=== PATIENT | male | born 1935 | race Caucasian/White ===

== ENCOUNTER 2019-02-23 07:40 | Inpatient (IN) ==
[2019-02-23 08:23] LABS: Basophils # 0.1 10*3/uL (0.0-0.2); Basophils % 0.6 % (0.0-0.8); Eosinophils # 0.1 10*3/uL (0.0-0.87); Eosinophils % 0.8 % (0.00-10.9); Hematocrit 42.9 VOL% (42.0-52.0); Hemoglobin 14.1 GM/DL (14.0-18.0); Immature Granulocytes % 0.5 %; Immature Granulocytes Absolute 0.04 #; Lymphocytes % 12.9 % (21.2-54.2); Mean Corpuscular HGB Conc 32.9 GM/DL (32-36); Mean Corpuscular Volume 91.5 FL (87-102); Mean Platelet Volume 9.6 FL (9.6-12.0); Monocytes % 11.7 % (1.7-12.7); Neutrophils % 73.5 % (38.7-73.9); Platelet Count 215 T/CUMM (130-400); Red Blood Count 4.69 MC/CUMM (3.8-5.5); Red Cell Distribution Width 13.2 % (9.3-17.3); White Blood Count 7.8 T/CUMM (4-12)
[2019-02-23 08:37] LABS: Calcium 8.7 MG/DL (8.5-10.1); Osmolality,Calculated 280.8 MOS/KG (273-304)
[2019-02-23 08:54] LABS: Apearance,Urine CLEAR (Clear); Bilirubin,Urine Negative (Negative); Blood, Urine Small mg/dL (Negative); Glucose,Urine (UA) 50 mg/dL (Negative); Hyaline Casts,Urine 4 /LPF (0-3); Ketones,Urine 5 mg/dL (Negative); Mucus,Urine Occasional /LPF (Occasional); Nitrite,Urine Negative (Negative); Protein,Urine Negative; RBC,Urine 3 /HPF (0-4); Squamous Epithelial Cell,Urine Occasional /HPF (0-10); Urine Color Yellow (Yellow); Urine Specific Gravity 1.019 (1.001-1.035); Urine Urobilinogen < 2.0 EU/DL (0.2-1.0); WBC,Urine <1 /HPF (0-6)
[2019-02-23] MEDS ORDERED: DEXTROSE 10% 25 GM/250 ML BAG IV PRN (10:57)
[2019-02-23] MEDS ORDERED: ONDANSETRON 4 MG/2 ML VIAL IV PRN (10:57)
[2019-02-23] MEDS ORDERED: LACTULOSE 20 GM/30 ML UDCUP PO PRN (10:57)
[2019-02-23] MEDS ORDERED: GLUCAGON 1 MG VIAL IM PRN (10:57)
[2019-02-23] MEDS ORDERED: ACETAMINOPHEN 325 MG TABLET PO PRN (10:57)
[2019-02-23] MEDS ORDERED: DEXTROSE 10% 250 ML BAG IV PRN (11:02)
[2019-02-23 11:34] LABS: Risk Ratio 2.45; Thyroid Stimulating Hormone 0.972 uIU/ml (0.358-3.74); VLDL CHOLESTEROL 18.4 MG/DL
[2019-02-23] MEDS: INSULIN LISPRO 100 UNIT/ML SUBCUT SCH ×3 (15:45→21:57)
[2019-02-23] MEDS: LISINOPRIL 5 MG TABLET PO SCH (19:35)
[2019-02-23] MEDS: INSULIN NPH/REGULAR 70/30 100 UNIT/ML SUBCUT SCH (19:35)
[2019-02-23] MEDS: FINASTERIDE 5 MG TABLET PO SCH (20:33)
[2019-02-23] MEDS: guaiFENesin/DM ER 600-30 MG TABLET PO SCH (20:33)
[2019-02-23] MEDS: rOPINIRole 1 MG TABLET PO SCH (20:33)
[2019-02-24 06:24] LABS: Basophils # 0.1 10*3/uL (0.0-0.2); Basophils % 0.7 % (0.0-0.8); Eosinophils # 0.1 10*3/uL (0.0-0.87); Eosinophils % 1.7 % (0.00-10.9); Hematocrit 43.1 VOL% (42.0-52.0); Hemoglobin 14.3 GM/DL (14.0-18.0); Immature Granulocytes % 0.6 %; Immature Granulocytes Absolute 0.04 #; Lymphocytes # 1.9 10*3/uL (1.4-4.0); Lymphocytes % 26.9 % (21.2-54.2); Mean Corpuscular HGB Conc 33.2 GM/DL (32-36); Mean Corpuscular Volume 91.9 FL (87-102); Monocytes % 13.8 % (1.7-12.7); Neutrophils % 56.3 % (38.7-73.9); Platelet Count 214 T/CUMM (130-400); Red Blood Count 4.69 MC/CUMM (3.8-5.5); Red Cell Distribution Width 13.1 % (9.3-17.3)
[2019-02-24 06:34] LABS: Calcium 8.5 MG/DL (8.5-10.1); Osmolality,Calculated 280.5 MOS/KG (273-304)
[2019-02-24] MEDS: guaiFENesin/DM ER 600-30 MG TABLET PO SCH ×2 (08:57→20:39)
[2019-02-24] MEDS: TAMSULOSIN 0.4 MG CAPSULE PO SCH (08:57)
[2019-02-24] MEDS: INSULIN LISPRO 100 UNIT/ML SUBCUT SCH ×4 (08:58→21:37)
[2019-02-24] MEDS: INSULIN NPH/REGULAR 70/30 100 UNIT/ML SUBCUT SCH ×2 (08:58→18:14)
[2019-02-24] MEDS: PANTOPRAZOLE 40 MG TABLET PO SCH (08:58)
[2019-02-24] MEDS: CLOPIDOGREL 75 MG TABLET PO SCH (08:59)
[2019-02-24] MEDS: rOPINIRole 1 MG TABLET PO SCH ×2 (08:59→20:39)
[2019-02-24] MEDS: CYANOCOBALAMIN 500 MCG TABLET PO SCH (08:59)
[2019-02-24] MEDS: LISINOPRIL 5 MG TABLET PO SCH (18:15)
[2019-02-24] MEDS: SODIUM CHLORIDE 0.9% 1,000 ML IV SCH (20:39)
[2019-02-24] MEDS: FINASTERIDE 5 MG TABLET PO SCH (20:40)
[2019-02-25 04:34] LABS: Basophils # 0.1 10*3/uL (0.0-0.2); Basophils % 0.5 % (0.0-0.8); Eosinophils # 0.1 10*3/uL (0.0-0.87); Eosinophils % 0.8 % (0.00-10.9); Hematocrit 41.1 VOL% (42.0-52.0); Hemoglobin 13.4 GM/DL (14.0-18.0); Immature Granulocytes % 0.5 %; Immature Granulocytes Absolute 0.06 #; Lymphocytes # 2.5 10*3/uL (1.4-4.0); Lymphocytes % 22.6 % (21.2-54.2); Mean Corpuscular HGB Conc 32.6 GM/DL (32-36); Mean Corpuscular Volume 91.7 FL (87-102); Mean Platelet Volume 9.6 FL (9.6-12.0); Monocytes % 11.5 % (1.7-12.7); Neutrophils % 64.1 % (38.7-73.9); Platelet Count 197 T/CUMM (130-400); Red Blood Count 4.48 MC/CUMM (3.8-5.5); White Blood Count 11.2 T/CUMM (4-12)
[2019-02-25 05:02] LABS: Calcium 8.3 MG/DL (8.5-10.1); Osmolality,Calculated 272.8 MOS/KG (273-304)
[2019-02-25] MEDS: rOPINIRole 1 MG TABLET PO SCH ×2 (09:24→20:27)
[2019-02-25] MEDS: TAMSULOSIN 0.4 MG CAPSULE PO SCH (09:24)
[2019-02-25] MEDS: PANTOPRAZOLE 40 MG TABLET PO SCH (09:24)
[2019-02-25] MEDS: CLOPIDOGREL 75 MG TABLET PO SCH (09:24)
[2019-02-25] MEDS: CYANOCOBALAMIN 500 MCG TABLET PO SCH (09:24)
[2019-02-25] MEDS: guaiFENesin/DM ER 600-30 MG TABLET PO SCH ×2 (09:24→20:27)
[2019-02-25] MEDS: INSULIN NPH/REGULAR 70/30 100 UNIT/ML SUBCUT SCH ×2 (09:25→18:12)
[2019-02-25] MEDS: INSULIN LISPRO 100 UNIT/ML SUBCUT SCH ×4 (09:26→20:58)
[2019-02-25] MEDS: SODIUM CHLORIDE 0.9% 1,000 ML IV SCH ×2 (09:29→23:46)
[2019-02-25] MEDS: ALBUTEROL/IPRATROPIUM 3 ML NEB RESP TX SCH ×2 (14:12→19:30)
[2019-02-25] MEDS: CARBIDOPA/LEVODOPA 25-100 MG TABLET PO SCH ×3 (15:02→20:28)
[2019-02-25] MEDS: ERGOCALCIFEROL 50,000 UNIT CAPSULE PO SCH ×2 (15:02→15:49)
[2019-02-25] MEDS: LISINOPRIL 5 MG TABLET PO SCH (18:12)
[2019-02-25] MEDS: FINASTERIDE 5 MG TABLET PO SCH (20:27)
[2019-02-26] MEDS: ALBUTEROL/IPRATROPIUM 3 ML NEB RESP TX SCH ×4 (00:14→20:37)
[2019-02-26] MEDS: INSULIN LISPRO 100 UNIT/ML SUBCUT SCH ×4 (07:56→21:19)
[2019-02-26 08:12] LABS: Osmolality,Calculated 282.1 MOS/KG (273-304)
[2019-02-26] MEDS ORDERED: TUBERCULIN SKIN TEST 0.1 ML SYRINGE INTRADERM ONE (08:29)
[2019-02-26] MEDS: PANTOPRAZOLE 40 MG TABLET PO SCH (08:37)
[2019-02-26] MEDS: CARBIDOPA/LEVODOPA 25-100 MG TABLET PO SCH ×3 (08:37→21:48)
[2019-02-26] MEDS: CLOPIDOGREL 75 MG TABLET PO SCH (08:37)
[2019-02-26] MEDS: INSULIN NPH/REGULAR 70/30 100 UNIT/ML SUBCUT SCH ×2 (08:38→18:06)
[2019-02-26] MEDS: guaiFENesin/DM ER 600-30 MG TABLET PO SCH ×2 (08:38→21:19)
[2019-02-26] MEDS: TAMSULOSIN 0.4 MG CAPSULE PO SCH (08:38)
[2019-02-26] MEDS: rOPINIRole 1 MG TABLET PO SCH ×2 (08:42→21:19)
[2019-02-26] MEDS: SODIUM CHLORIDE 0.9% 1,000 ML IV SCH (12:15)
[2019-02-26] MEDS: LISINOPRIL 5 MG TABLET PO SCH (18:06)
[2019-02-26] MEDS: FINASTERIDE 5 MG TABLET PO SCH (21:26)
[2019-02-27] MEDS: ALBUTEROL/IPRATROPIUM 3 ML NEB RESP TX SCH ×2 (01:04→08:10)
[2019-02-27] MEDS: SODIUM CHLORIDE 0.9% 1,000 ML IV SCH (02:14)
[2019-02-27 05:14] LABS: Basophils # 0.1 10*3/uL (0.0-0.2); Basophils % 0.7 % (0.0-0.8); Eosinophils # 0.1 10*3/uL (0.0-0.87); Eosinophils % 1.6 % (0.00-10.9); Hematocrit 34.8 VOL% (42.0-52.0); Hemoglobin 11.4 GM/DL (14.0-18.0); Immature Granulocytes % 0.5 %; Immature Granulocytes Absolute 0.04 #; Lymphocytes # 1.9 10*3/uL (1.4-4.0); Lymphocytes % 25.4 % (21.2-54.2); Mean Corpuscular HGB Conc 32.8 GM/DL (32-36); Mean Platelet Volume 9.9 FL (9.6-12.0); Monocytes % 8.7 % (1.7-12.7); Neutrophils % 63.1 % (38.7-73.9); Platelet Count 201 T/CUMM (130-400); Red Blood Count 3.74 MC/CUMM (3.8-5.5); Red Cell Distribution Width 12.9 % (9.3-17.3); White Blood Count 7.5 T/CUMM (4-12)
[2019-02-27 05:40] LABS: Calcium 8.1 MG/DL (8.5-10.1); Osmolality,Calculated 282.5 MOS/KG (273-304)
[2019-02-27] MEDS: guaiFENesin/DM ER 600-30 MG TABLET PO SCH (08:56)
[2019-02-27] MEDS: PANTOPRAZOLE 40 MG TABLET PO SCH (08:56)
[2019-02-27] MEDS: TAMSULOSIN 0.4 MG CAPSULE PO SCH (08:56)
[2019-02-27] MEDS: rOPINIRole 1 MG TABLET PO SCH (08:56)
[2019-02-27] MEDS: CLOPIDOGREL 75 MG TABLET PO SCH (08:56)
[2019-02-27] MEDS: INSULIN NPH/REGULAR 70/30 100 UNIT/ML SUBCUT SCH (08:56)
[2019-02-27] MEDS: INSULIN LISPRO 100 UNIT/ML SUBCUT SCH ×2 (08:57→12:47)
[2019-02-27] MEDS: CARBIDOPA/LEVODOPA 25-100 MG TABLET PO SCH (09:02)
[2019-02-27 11:55] VITALS: BP 128/49
== END 2019-02-27 14:44 | DRG 57 ==
LOC: N.ED 07:40 → N.EDINP 07:40 → N.2E 13:35 → SUATTDRO 02-24 11:34
PROVIDERS: ADMIT Internal Medicine; ATTEND Internal Medicine

== ENCOUNTER 2021-05-11 19:39 | Inpatient (IN) ==
[2021-05-11] MEDS ORDERED: ONDANSETRON 4 MG/2 ML VIAL IV STA (19:59)
[2021-05-11] MEDS ORDERED: SODIUM CHLORIDE 0.9% 500 ML IV STA ×2 (19:59→21:47)
[2021-05-11 20:43] LABS: Basophils % 0.3 % (0.0-0.8); Hematocrit 42.9 VOL% (42.0-52.0); Hemoglobin 13.5 GM/DL (14.0-18.0); Immature Granulocytes % 0.5 %; Immature Granulocytes Absolute 0.06 #; Lymphocytes # 0.5 10*3/uL (1.4-4.0); Lymphocytes % 3.8 % (21.2-54.2); Mean Corpuscular HGB Conc 31.5 GM/DL (32-36); Mean Corpuscular Volume 94.7 FL (87-102); Monocytes % 3.6 % (1.7-12.7); Neutrophils % 91.8 % (38.7-73.9); Platelet Count 297 T/CUMM (130-400); Red Blood Count 4.53 MC/CUMM (3.8-5.5); Red Cell Distribution Width 13.8 % (9.3-17.3)
[2021-05-11 21:01] LABS: Albumin 3.5 G/DL (3.4-5.0); Bilirubin,Total 0.5 MG/DL (0.20-1.00); Calcium 8.9 MG/DL (8.5-10.1); Osmolality,Calculated 279.1 MOS/KG (273-304); Potassium 4.3 MMOL/L (3.5-5.1); Total Protein 6.8 G/DL (6.4-8.2)
[2021-05-11 21:03] LABS: Band Neutrophils 1 % (0-10); Elliptocytes Few; Lymphocytes 5 % (20-55); Reactive Lymphocytes Few; Segmented Neutrophils 91 % (50-85); Total Cells Counted 100
[2021-05-11 21:04] LABS: Hypochromia Slight; Platelet Estimate Adequate; Target Cells Few
[2021-05-11 22:07] LABS: Bacteria,Urine Many /HPF (Few); Bilirubin,Urine Negative (Negative); Blood, Urine Small mg/dL (Negative); Glucose,Urine (UA) Negative (Negative); Ketones,Urine 5 mg/dL (Negative); Nitrite,Urine Negative (Negative); Protein,Urine 30 MG/DL; Squamous Epithelial Cell,Urine Occasional /HPF (0-10); Urine Appearance CLOUDY (Clear); Urine Color Amber (Yellow); Urine Specific Gravity 1.023 (1.001-1.035); Urine Urobilinogen < 2.0 EU/DL (<2.0)
[2021-05-11] MEDS ORDERED: MEROPENEM 1,000 MG in SODIUM CHLORIDE 0.9% 100 ML IV ONE (22:28)
[2021-05-11] MEDS ORDERED: DEXTROSE 50% 25 GM/50 ML VIAL IV PRN (22:43)
[2021-05-11] MEDS ORDERED: GLUCAGON 1 MG VIAL IM PRN ×2 (22:43→22:49)
[2021-05-11] MEDS ORDERED: guaiFENesin/DM ER 600-30 MG TABLET PO PRN (22:49)
[2021-05-11] MEDS ORDERED: DOCUSATE SODIUM 100 MG CAPSULE PO PRN (22:49)
[2021-05-11] MEDS ORDERED: MORPHINE 2 MG/1 ML SYRINGE IV PRN (22:49)
[2021-05-11] MEDS ORDERED: DEXTROSE 10% 250 ML BAG IV PRN (22:49)
[2021-05-11] MEDS ORDERED: hydrALAZINE 20 MG/1 ML VIAL IV PRN (22:49)
[2021-05-11] MEDS ORDERED: ONDANSETRON 4 MG/2 ML VIAL IV PRN (22:49)
[2021-05-11] MEDS ORDERED: NICOTINE 21 MG/24 HR PATCH TRANSDERM PRN (22:49)
[2021-05-11] MEDS ORDERED: PROMETHAZINE 25 MG/1 ML VIAL IM PRN (22:49)
[2021-05-11] MEDS ORDERED: diphenhydrAMINE CAP 25 MG CAPSULE PO PRN (22:49)
[2021-05-12] MEDS: ALBUTEROL/IPRATROPIUM 3 ML NEB RESP TX SCH ×4 (00:10→20:33)
[2021-05-12 04:28] LABS: Basophils % 0.3 % (0.0-0.8); Eosinophils % 0.1 % (0.00-10.9); Hematocrit 37.1 VOL% (42.0-52.0); Hemoglobin 11.8 GM/DL (14.0-18.0); Immature Granulocytes % 0.6 %; Immature Granulocytes Absolute 0.05 #; Lymphocytes # 0.9 10*3/uL (1.4-4.0); Lymphocytes % 10.1 % (21.2-54.2); Mean Corpuscular HGB Conc 31.8 GM/DL (32-36); Mean Corpuscular Volume 94.9 FL (87-102); Mean Platelet Volume 9.4 FL (9.6-12.0); Monocytes % 5.5 % (1.7-12.7); Neutrophils % 83.4 % (38.7-73.9); Platelet Count 263 T/CUMM (130-400); Red Blood Count 3.91 MC/CUMM (3.8-5.5); White Blood Count 9.1 T/CUMM (4-12)
[2021-05-12 04:56] LABS: Calcium 8.4 MG/DL (8.5-10.1); Osmolality,Calculated 284.7 MOS/KG (273-304); Potassium 4.2 MMOL/L (3.5-5.1); Risk Ratio 2.29
[2021-05-12] MEDS ORDERED: MEROPENEM 500 MG in SODIUM CHLORIDE 0.9% 100 ML IV SCH (06:00)
[2021-05-12] MEDS: PANTOPRAZOLE 40 MG TABLET PO SCH (09:17)
[2021-05-12] MEDS: TAMSULOSIN 0.4 MG CAPSULE PO SCH (09:17)
[2021-05-12] MEDS: INSULIN LISPRO 100 UNIT/ML SUBCUT SCH ×4 (09:18→21:16)
[2021-05-12] MEDS: HEPARIN 5,000 UNIT/1 ML VIAL SUBCUT SCH ×2 (09:19→20:50)
[2021-05-12] MEDS: ACETAMINOPHEN 325 MG TABLET PO PRN (13:00)
[2021-05-12] MEDS ORDERED: VANCOMYCIN INJ 1,250 MG in SODIUM CHLORIDE 0.9% 250 ML IV SCH (13:30)
[2021-05-12] MEDS: rOPINIRole 1 MG TABLET PO SCH (20:49)
[2021-05-12] MEDS: FINASTERIDE 5 MG TABLET PO SCH (20:50)
[2021-05-12] MEDS: CARBIDOPA/LEVODOPA 25-100 MG TABLET PO SCH (20:50)
[2021-05-12] MEDS ORDERED: MORPHINE 4 MG/1 ML VIAL IV PRN (23:13)
[2021-05-13] MEDS ORDERED: VANCOMYCIN INJ 1,500 MG in SODIUM CHLORIDE 0.9% 500 ML IV SCH (01:00)
[2021-05-13] MEDS: ALBUTEROL/IPRATROPIUM 3 ML NEB RESP TX SCH ×4 (02:06→20:50)
[2021-05-13 08:15] LABS: Basophils % 0.3 % (0.0-0.8); Eosinophils % 0.1 % (0.00-10.9); Hemoglobin 11.7 GM/DL (14.0-18.0); Immature Granulocytes % 0.7 %; Lymphocytes # 1.8 10*3/uL (1.4-4.0); Lymphocytes % 12.1 % (21.2-54.2); Mean Corpuscular HGB Conc 31.6 GM/DL (32-36); Mean Corpuscular Volume 94.6 FL (87-102); Mean Platelet Volume 9.1 FL (9.6-12.0); Monocytes % 4.9 % (1.7-12.7); Neutrophils % 81.9 % (38.7-73.9); Platelet Count 227 T/CUMM (130-400); Red Blood Count 3.91 MC/CUMM (3.8-5.5); Red Cell Distribution Width 13.9 % (9.3-17.3)
[2021-05-13 08:23] LABS: Calcium 8.1 MG/DL (8.5-10.1); Osmolality,Calculated 284.5 MOS/KG (273-304); Potassium 3.7 MMOL/L (3.5-5.1)
[2021-05-13 08:49] LABS: Hypochromia Slight; Lymphocytes 8 % (20-55); Microcytosis Slight; Platelet Estimate Adequate; Segmented Neutrophils 89 % (50-85); Total Cells Counted 100
[2021-05-13] MEDS: PANTOPRAZOLE 40 MG TABLET PO SCH (09:00)
[2021-05-13] MEDS: CARBIDOPA/LEVODOPA 25-100 MG TABLET PO SCH ×3 (09:00→20:40)
[2021-05-13] MEDS: HEPARIN 5,000 UNIT/1 ML VIAL SUBCUT SCH ×2 (09:00→20:41)
[2021-05-13] MEDS: INSULIN LISPRO 100 UNIT/ML SUBCUT SCH ×4 (09:00→20:41)
[2021-05-13] MEDS: TAMSULOSIN 0.4 MG CAPSULE PO SCH (09:00)
[2021-05-13] MEDS: rOPINIRole 1 MG TABLET PO SCH ×2 (09:00→20:40)
[2021-05-13] MEDS: AMOXICILLIN 875 MG TABLET PO SCH ×2 (13:50→20:40)
[2021-05-13] MEDS: ACETAMINOPHEN 325 MG TABLET PO PRN ×2 (17:20→21:07)
[2021-05-13] MEDS: FINASTERIDE 5 MG TABLET PO SCH (20:40)
[2021-05-14] MEDS: ALBUTEROL/IPRATROPIUM 3 ML NEB RESP TX SCH ×4 (01:45→19:10)
[2021-05-14 06:11] LABS: Basophils % 0.3 % (0.0-0.8); Eosinophils % 0.3 % (0.00-10.9); Hematocrit 35.6 VOL% (42.0-52.0); Hemoglobin 11.5 GM/DL (14.0-18.0); Immature Granulocytes % 0.8 %; Immature Granulocytes Absolute 0.09 #; Lymphocytes # 0.9 10*3/uL (1.4-4.0); Lymphocytes % 7.7 % (21.2-54.2); Mean Corpuscular HGB Conc 32.3 GM/DL (32-36); Mean Platelet Volume 9.3 FL (9.6-12.0); Monocytes % 7.8 % (1.7-12.7); Neutrophils % 83.1 % (38.7-73.9); Platelet Count 232 T/CUMM (130-400); Red Blood Count 3.83 MC/CUMM (3.8-5.5); Red Cell Distribution Width 13.7 % (9.3-17.3); White Blood Count 11.8 T/CUMM (4-12)
[2021-05-14 06:27] LABS: Calcium 8.4 MG/DL (8.5-10.1); Osmolality,Calculated 279.1 MOS/KG (273-304); Potassium 3.8 MMOL/L (3.5-5.1)
[2021-05-14 06:49] LABS: Band Neutrophils 2 % (0-10); Lymphocytes 10 % (20-55); Segmented Neutrophils 81 % (50-85); Total Cells Counted 100
[2021-05-14 06:50] LABS: Microcytosis 1+; Ovalocytes Slight; Platelet Estimate Normal
[2021-05-14] MEDS: HEPARIN 5,000 UNIT/1 ML VIAL SUBCUT SCH ×2 (09:10→20:45)
[2021-05-14] MEDS: CARBIDOPA/LEVODOPA 25-100 MG TABLET PO SCH ×3 (09:10→20:44)
[2021-05-14] MEDS: INSULIN LISPRO 100 UNIT/ML SUBCUT SCH ×4 (09:10→20:43)
[2021-05-14] MEDS: CLOPIDOGREL 75 MG TABLET PO SCH (09:10)
[2021-05-14] MEDS: TAMSULOSIN 0.4 MG CAPSULE PO SCH (09:10)
[2021-05-14] MEDS: rOPINIRole 1 MG TABLET PO SCH ×2 (09:10→20:44)
[2021-05-14] MEDS: INSULIN NPH/REGULAR 70/30 100 UNIT/ML SUBCUT SCH (09:10)
[2021-05-14] MEDS: PANTOPRAZOLE 40 MG TABLET PO SCH (09:10)
[2021-05-14] MEDS: AMOXICILLIN 875 MG TABLET PO SCH ×2 (09:11→20:44)
[2021-05-14] MEDS: POLYETHYLENE GLYCOL POWDER 17 GM PACK PO SCH (16:45)
[2021-05-14] MEDS ORDERED: INSULIN NPH/REGULAR 70/30 100 UNIT/ML SUBCUT SCH (17:00)
[2021-05-14] MEDS: FINASTERIDE 5 MG TABLET PO SCH (20:44)
[2021-05-14] MEDS: DOCUSATE SODIUM 100 MG CAPSULE PO SCH (20:47)
[2021-05-14] MEDS: ACETAMINOPHEN 325 MG TABLET PO PRN (20:47)
[2021-05-15] MEDS: ALBUTEROL/IPRATROPIUM 3 ML NEB RESP TX SCH ×2 (00:32→07:45)
[2021-05-15 05:51] LABS: Basophils % 0.3 % (0.0-0.8); Eosinophils # 0.1 10*3/uL (0.0-0.87); Eosinophils % 0.5 % (0.00-10.9); Hemoglobin 11.6 GM/DL (14.0-18.0); Immature Granulocytes % 1.2 %; Immature Granulocytes Absolute 0.12 #; Lymphocytes # 1.2 10*3/uL (1.4-4.0); Lymphocytes % 11.9 % (21.2-54.2); Mean Corpuscular HGB Conc 33.1 GM/DL (32-36); Mean Corpuscular Volume 91.4 FL (87-102); Mean Platelet Volume 9.3 FL (9.6-12.0); Monocytes % 10.1 % (1.7-12.7); Platelet Count 251 T/CUMM (130-400); Red Blood Count 3.83 MC/CUMM (3.8-5.5); Red Cell Distribution Width 13.4 % (9.3-17.3); White Blood Count 10.4 T/CUMM (4-12)
[2021-05-15 06:14] LABS: Calcium 8.4 MG/DL (8.5-10.1); Osmolality,Calculated 276.1 MOS/KG (273-304); Potassium 3.7 MMOL/L (3.5-5.1)
[2021-05-15] MEDS: AMOXICILLIN 875 MG TABLET PO SCH (09:02)
[2021-05-15] MEDS: DOCUSATE SODIUM 100 MG CAPSULE PO SCH (09:02)
[2021-05-15] MEDS: PANTOPRAZOLE 40 MG TABLET PO SCH (09:02)
[2021-05-15] MEDS: POLYETHYLENE GLYCOL POWDER 17 GM PACK PO SCH (09:03)
[2021-05-15] MEDS: TAMSULOSIN 0.4 MG CAPSULE PO SCH (09:03)
[2021-05-15] MEDS: CLOPIDOGREL 75 MG TABLET PO SCH (09:03)
[2021-05-15] MEDS: CARBIDOPA/LEVODOPA 25-100 MG TABLET PO SCH (09:03)
[2021-05-15] MEDS: HEPARIN 5,000 UNIT/1 ML VIAL SUBCUT SCH (09:03)
[2021-05-15] MEDS: rOPINIRole 1 MG TABLET PO SCH (09:03)
[2021-05-15] MEDS: INSULIN LISPRO 100 UNIT/ML SUBCUT SCH ×2 (09:39→12:48)
[2021-05-15] MEDS: INSULIN NPH/REGULAR 70/30 100 UNIT/ML SUBCUT SCH (09:39)
[2021-05-15] MEDS ORDERED: TUBERCULIN SKIN TEST 0.1 ML SYRINGE INTRADERM ONE (11:00)
[2021-05-15 11:24] VITALS: BP 116/50
== END 2021-05-15 15:50 | DRG 689 ==
LOC: N.ED 19:39 → SUATTDRO 22:43 → N.EDINP 22:43 → N.5E 05-12 13:53
PROVIDERS: ADMIT Hospitalist; ATTEND Internal Medicine

== ENCOUNTER 2021-10-27 14:15 | Inpatient (IN) ==
[2021-10-27] MEDS ORDERED: SODIUM CHLORIDE 0.9% 1,000 ML IV STA (15:36)
[2021-10-27 15:43] LABS: Basophils % 0.4 % (0.0-0.8); Hematocrit 40.7 VOL% (42.0-52.0); Hemoglobin 13.5 GM/DL (14.0-18.0); Immature Granulocytes % 0.5 %; Immature Granulocytes Absolute 0.05 #; Lymphocytes # 0.4 10*3/uL (1.4-4.0); Lymphocytes % 3.5 % (21.2-54.2); Mean Corpuscular HGB Conc 33.2 GM/DL (32-36); Mean Corpuscular Volume 91.9 FL (87-102); Mean Platelet Volume 9.6 FL (9.6-12.0); Monocytes % 10.2 % (1.7-12.7); Neutrophils % 85.4 % (38.7-73.9); Platelet Count 254 T/CUMM (130-400); Red Blood Count 4.43 MC/CUMM (3.8-5.5); Red Cell Distribution Width 13.3 % (9.3-17.3); White Blood Count 10.2 T/CUMM (4-12)
[2021-10-27 16:02] LABS: Alanine Aminotransferase 15 U/L (16-61); Albumin 3.6 G/DL (3.4-5.0); Alkaline Phosphatase 71 U/L (45-117); Aspartate Amino Transferase 18 U/L (0-37); Bilirubin,Total < 0.39 MG/DL (0.20-1.00); Blood Urea Nitrogen 18 MG/DL (7-18); Calcium 9.4 MG/DL (8.5-10.1); Carbon Dioxide 27 MMOL/L (21-32); Chloride 106 MMOL/L (98-107); Glucose 229 MG/DL (74-106); Osmolality,Calculated 285.5 MOS/KG (273-304); Potassium 4.2 MMOL/L (3.5-5.1); Sodium 139 MMOL/L (136-145); Total Protein 6.7 G/DL (6.4-8.2)
[2021-10-27 16:28] LABS: Hypochromia 1+; Lymphocytes 1 % (20-55); Total Cells Counted 100
[2021-10-27 16:29] LABS: Platelet Estimate Adequate
[2021-10-27 16:31] LABS: Squamous Epithelial Cell,Urine Occasional /HPF (0-10)
[2021-10-27 16:34] LABS: Urine Appearance Clear (Clear); Urine Color Yellow (Yellow)
[2021-10-27 16:35] LABS: Bilirubin,Urine Negative (Negative); Blood, Urine Negative (Negative); Glucose,Urine (UA) 500 mg/dL (Negative); Ketones,Urine Trace mg/dL (Negative); Nitrite,Urine Negative (Negative); Protein,Urine Negative (Negative); Urine Urobilinogen 0.2 eU/dL (<2.0)
[2021-10-27 16:55] LABS: Ferritin 83.5 ng/mL (26-388)
[2021-10-27] MEDS ORDERED: guaiFENesin/DM ER 600-30 MG TABLET PO PRN (19:21)
[2021-10-27] MEDS ORDERED: ONDANSETRON 4 MG/2 ML VIAL IV PRN (19:21)
[2021-10-27] MEDS ORDERED: GLUCAGON 1 MG VIAL IM PRN ×2 (19:21→19:28)
[2021-10-27] MEDS ORDERED: DEXTROSE 10% 250 ML BAG IV PRN (19:27)
[2021-10-27] MEDS ORDERED: DEXTROSE 50% 25 GM/50 ML VIAL IV PRN (19:28)
[2021-10-27 19:45] LABS: Thyroid Stimulating Hormone 0.548 uIU/ml (0.358-3.74)
[2021-10-27 20:28] LABS: Folate 15.98 NG/ML (5.38-24.0)
[2021-10-27] MEDS: cefTRIAXone 1,000 MG in SODIUM CHLORIDE 0.9% 100 ML IV SCH (20:50)
[2021-10-27] MEDS ORDERED: REMDESIVIR 200 MG in SODIUM CHLORIDE 0.9% 210 ML IV ONE (21:00)
[2021-10-27] MEDS: ENOXAPARIN 40 MG/0.4 ML SYRINGE SUBCUT SCH (21:40)
[2021-10-27] MEDS: AZITHROMYCIN INJ 500 MG in SODIUM CHLORIDE 0.9% 250 ML IV SCH (21:40)
[2021-10-27] MEDS: INSULIN REGULAR 100 UNIT/ML SUBCUT SCH (21:52)
[2021-10-28] MEDS: rOPINIRole 1 MG TABLET PO SCH ×3 (00:17→20:31)
[2021-10-28] MEDS: FINASTERIDE 5 MG TABLET PO SCH ×2 (00:17→20:31)
[2021-10-28] MEDS: CARBIDOPA/LEVODOPA 25-100 MG TABLET PO SCH ×4 (00:18→20:31)
[2021-10-28] MEDS: ASCORBIC ACID 500 MG TABLET PO SCH ×3 (00:18→20:30)
[2021-10-28 05:21] LABS: Basophils # 0.1 10*3/uL (0.0-0.2); Basophils % 0.6 % (0.0-0.8); Eosinophils % 0.1 % (0.00-10.9); Hematocrit 37.8 VOL% (42.0-52.0); Hemoglobin 12.2 GM/DL (14.0-18.0); Immature Granulocytes % 0.4 %; Immature Granulocytes Absolute 0.03 #; Lymphocytes # 1.4 10*3/uL (1.4-4.0); Lymphocytes % 16.5 % (21.2-54.2); Mean Corpuscular HGB Conc 32.3 GM/DL (32-36); Mean Corpuscular Volume 93.8 FL (87-102); Mean Platelet Volume 9.6 FL (9.6-12.0); Monocytes # 1.2 10*3/uL (0.11-0.8); Monocytes % 14.5 % (1.7-12.7); Neutrophils % 67.9 % (38.7-73.9); Platelet Count 203 T/CUMM (130-400); Red Blood Count 4.03 MC/CUMM (3.8-5.5); Red Cell Distribution Width 13.4 % (9.3-17.3); White Blood Count 8.3 T/CUMM (4-12)
[2021-10-28 05:47] LABS: Risk Ratio 2.48; VLDL Cholesterol 18.2 MG/DL
[2021-10-28 05:51] LABS: Bilirubin,Total 0.4 MG/DL (0.20-1.00); Calcium 8.3 MG/DL (8.5-10.1); Osmolality,Calculated 288.1 MOS/KG (273-304); Potassium 4.1 MMOL/L (3.5-5.1)
[2021-10-28 07:32] LABS: Bilirubin,Urine Negative (Negative); Blood, Urine Negative (Negative); Glucose,Urine (UA) Negative (Negative); Ketones,Urine Negative (Negative); Mucus,Urine Occasional /LPF (Occasional); Nitrite,Urine Negative (Negative); Protein,Urine Negative (Negative); RBC,Urine 1 /HPF (0-4); Urine Appearance Clear (Clear); Urine Color Yellow (Yellow); Urine Urobilinogen 0.2 eU/dL (<2.0); Urine pH 5.5 (4.5-8.0)
[2021-10-28] MEDS ORDERED: CHOLECALCIFEROL 400 UNIT TABLET PO SCH (09:00)
[2021-10-28] MEDS ORDERED: REMDESIVIR 100 MG in SODIUM CHLORIDE 0.9% 100 ML IV SCH (09:00)
[2021-10-28] MEDS: ZINC SULFATE 220 MG CAPSULE PO SCH (10:01)
[2021-10-28] MEDS: DOCUSATE SODIUM 100 MG CAPSULE PO SCH ×2 (10:02→20:31)
[2021-10-28] MEDS: TAMSULOSIN 0.4 MG CAPSULE PO SCH (10:02)
[2021-10-28] MEDS: PANTOPRAZOLE 40 MG TABLET PO SCH (10:02)
[2021-10-28] MEDS: CETIRIZINE 10 MG TABLET PO SCH (10:03)
[2021-10-28] MEDS: CLOPIDOGREL 75 MG TABLET PO SCH (10:03)
[2021-10-28] MEDS: CYANOCOBALAMIN 500 MCG TABLET PO SCH (10:03)
[2021-10-28] MEDS: POLYETHYLENE GLYCOL POWDER 17 GM PACK PO SCH (10:04)
[2021-10-28] MEDS: INSULIN REGULAR 100 UNIT/ML SUBCUT SCH ×4 (10:13→20:32)
[2021-10-28] MEDS ORDERED: CETIRIZINE 10 MG TABLET PO SCH (12:30)
[2021-10-28] MEDS: CHOLECALCIFEROL 5,000 UNIT TABLET PO SCH ×2 (12:33→20:31)
[2021-10-28] MEDS: FAMOTIDINE 20 MG TABLET PO SCH ×2 (12:33→20:31)
[2021-10-28] MEDS: LACTATED RINGERS 1,000 ML IV SCH ×2 (12:40→21:30)
[2021-10-28] MEDS ORDERED: ACETAMINOPHEN 325 MG TABLET PO PRN (18:25)
[2021-10-28] MEDS: cefTRIAXone 1,000 MG in SODIUM CHLORIDE 0.9% 100 ML IV SCH (20:30)
[2021-10-28] MEDS: ENOXAPARIN 40 MG/0.4 ML SYRINGE SUBCUT SCH (20:32)
[2021-10-28] MEDS: lisinopriL 5 MG TABLET PO SCH (20:40)
[2021-10-28] MEDS: MELATONIN 3 MG TABLET PO SCH (20:40)
[2021-10-28] MEDS: AZITHROMYCIN INJ 500 MG in SODIUM CHLORIDE 0.9% 250 ML IV SCH (21:27)
[2021-10-29 07:32] LABS: Basophils % 0.4 % (0.0-0.8); Hematocrit 36.5 VOL% (42.0-52.0); Hemoglobin 11.8 GM/DL (14.0-18.0); Immature Granulocytes % 0.7 %; Immature Granulocytes Absolute 0.05 #; Lymphocytes # 1.6 10*3/uL (1.4-4.0); Lymphocytes % 22.9 % (21.2-54.2); Mean Corpuscular HGB Conc 32.3 GM/DL (32-36); Mean Corpuscular Volume 93.8 FL (87-102); Mean Platelet Volume 10.3 FL (9.6-12.0); Monocytes # 0.4 10*3/uL (0.11-0.8); Monocytes % 5.1 % (1.7-12.7); Neutrophils % 70.9 % (38.7-73.9); Platelet Count 173 T/CUMM (130-400); Red Blood Count 3.89 MC/CUMM (3.8-5.5); Red Cell Distribution Width 13.5 % (9.3-17.3)
[2021-10-29 07:59] LABS: Albumin 2.7 G/DL (3.4-5.0); Bilirubin,Total 1.6 MG/DL (0.20-1.00); Calcium 8.5 MG/DL (8.5-10.1); Osmolality,Calculated 287.4 MOS/KG (273-304); Total Protein 5.7 G/DL (6.4-8.2)
[2021-10-29] MEDS: DOCUSATE SODIUM 100 MG CAPSULE PO SCH ×2 (10:09→22:36)
[2021-10-29] MEDS: CYANOCOBALAMIN 500 MCG TABLET PO SCH (10:10)
[2021-10-29] MEDS: rOPINIRole 1 MG TABLET PO SCH ×2 (10:10→21:53)
[2021-10-29] MEDS: ZINC SULFATE 220 MG CAPSULE PO SCH (10:10)
[2021-10-29] MEDS: CLOPIDOGREL 75 MG TABLET PO SCH (10:10)
[2021-10-29] MEDS: FAMOTIDINE 20 MG TABLET PO SCH ×2 (10:11→22:36)
[2021-10-29] MEDS: TAMSULOSIN 0.4 MG CAPSULE PO SCH (10:11)
[2021-10-29] MEDS: POLYETHYLENE GLYCOL POWDER 17 GM PACK PO SCH (10:11)
[2021-10-29] MEDS: PANTOPRAZOLE 40 MG TABLET PO SCH (10:11)
[2021-10-29] MEDS: CHOLECALCIFEROL 5,000 UNIT TABLET PO SCH ×2 (10:12→21:52)
[2021-10-29] MEDS: ASCORBIC ACID 500 MG TABLET PO SCH ×2 (10:12→21:52)
[2021-10-29] MEDS: CETIRIZINE 10 MG TABLET PO SCH (10:12)
[2021-10-29] MEDS: CARBIDOPA/LEVODOPA 25-100 MG TABLET PO SCH ×3 (10:12→21:52)
[2021-10-29] MEDS: LACTATED RINGERS 1,000 ML IV SCH ×2 (10:13→18:07)
[2021-10-29] MEDS: INSULIN REGULAR 100 UNIT/ML SUBCUT SCH ×4 (10:13→22:36)
[2021-10-29] MEDS: lisinopriL 5 MG TABLET PO SCH (21:52)
[2021-10-29] MEDS: MELATONIN 3 MG TABLET PO SCH (21:52)
[2021-10-29] MEDS: FINASTERIDE 5 MG TABLET PO SCH (21:52)
[2021-10-29] MEDS: ENOXAPARIN 40 MG/0.4 ML SYRINGE SUBCUT SCH (21:53)
[2021-10-29] MEDS: cefTRIAXone 1,000 MG in SODIUM CHLORIDE 0.9% 100 ML IV SCH (22:35)
[2021-10-29] MEDS: AZITHROMYCIN INJ 500 MG in SODIUM CHLORIDE 0.9% 250 ML IV SCH (23:51)
[2021-10-30] MEDS: LACTATED RINGERS 1,000 ML IV SCH (04:41)
[2021-10-30 05:37] LABS: Basophils % 0.4 % (0.0-0.8); Eosinophils % 0.2 % (0.00-10.9); Hematocrit 39.3 VOL% (42.0-52.0); Immature Granulocytes % 0.9 %; Lymphocytes # 1.5 10*3/uL (1.4-4.0); Lymphocytes % 14.2 % (21.2-54.2); Mean Corpuscular HGB Conc 33.1 GM/DL (32-36); Mean Corpuscular Volume 91.2 FL (87-102); Mean Platelet Volume 10.3 FL (9.6-12.0); Monocytes # 0.9 10*3/uL (0.11-0.8); Monocytes % 8.7 % (1.7-12.7); Neutrophils % 75.6 % (38.7-73.9); Platelet Count 175 T/CUMM (130-400); Red Blood Count 4.31 MC/CUMM (3.8-5.5); Red Cell Distribution Width 13.6 % (9.3-17.3); White Blood Count 10.6 T/CUMM (4-12)
[2021-10-30 05:57] LABS: Albumin 2.8 G/DL (3.4-5.0); Bilirubin,Total 1.2 MG/DL (0.20-1.00); Osmolality,Calculated 283.3 MOS/KG (273-304); Potassium 3.6 MMOL/L (3.5-5.1); Total Protein 5.7 G/DL (6.4-8.2)
[2021-10-30 08:24] VITALS: BP 134/46
[2021-10-30] MEDS: rOPINIRole 1 MG TABLET PO SCH (08:53)
[2021-10-30] MEDS: CLOPIDOGREL 75 MG TABLET PO SCH (08:54)
[2021-10-30] MEDS: TAMSULOSIN 0.4 MG CAPSULE PO SCH (08:54)
[2021-10-30] MEDS: ASCORBIC ACID 500 MG TABLET PO SCH (08:54)
[2021-10-30] MEDS: CYANOCOBALAMIN 500 MCG TABLET PO SCH (08:54)
[2021-10-30] MEDS: ZINC SULFATE 220 MG CAPSULE PO SCH (08:54)
[2021-10-30] MEDS: DOCUSATE SODIUM 100 MG CAPSULE PO SCH (08:54)
[2021-10-30] MEDS: CHOLECALCIFEROL 5,000 UNIT TABLET PO SCH (08:54)
[2021-10-30] MEDS: INSULIN REGULAR 100 UNIT/ML SUBCUT SCH ×2 (08:55→12:18)
[2021-10-30] MEDS: PANTOPRAZOLE 40 MG TABLET PO SCH (08:55)
[2021-10-30] MEDS: FAMOTIDINE 20 MG TABLET PO SCH (08:55)
[2021-10-30] MEDS: CETIRIZINE 10 MG TABLET PO SCH (08:55)
[2021-10-30] MEDS: POLYETHYLENE GLYCOL POWDER 17 GM PACK PO SCH (09:03)
[2021-10-30] MEDS: CARBIDOPA/LEVODOPA 25-100 MG TABLET PO SCH (09:06)
== END 2021-10-30 12:37 | DRG 179 ==
LOC: N.ED 14:15 → N.3E 19:16
PROVIDERS: ADMIT Internal Medicine; ATTEND Internal Medicine

== ENCOUNTER 2021-11-01 17:12 | Inpatient (IN) ==
[2021-11-01] MEDS ORDERED: SODIUM CHLORIDE 0.9% 1,000 ML IV STA (18:17)
[2021-11-01 18:27] LABS: Basophils % 0.2 % (0.0-0.8); Hematocrit 37.1 VOL% (42.0-52.0); Hemoglobin 12.4 GM/DL (14.0-18.0); Immature Granulocytes % 0.9 %; Immature Granulocytes Absolute 0.11 #; Lymphocytes # 0.9 10*3/uL (1.4-4.0); Lymphocytes % 7.2 % (21.2-54.2); Mean Corpuscular HGB Conc 33.4 GM/DL (32-36); Mean Corpuscular Volume 91.8 FL (87-102); Mean Platelet Volume 11.3 FL (9.6-12.0); Monocytes % 8.8 % (1.7-12.7); Neutrophils % 82.9 % (38.7-73.9); Platelet Count 222 T/CUMM (130-400); Red Blood Count 4.04 MC/CUMM (3.8-5.5); Red Cell Distribution Width 13.8 % (9.3-17.3); White Blood Count 11.9 T/CUMM (4-12)
[2021-11-01 18:35] LABS: Arterial Base Excess iSTAT 1 MMOL/L (-2.5-2.5); Arterial Bicarbonate iSTAT 25.4 MMOL/L (20-26); Arterial O2 Saturation iSTAT 96 % (95-100); Arterial PCO2 iSTAT 37 MM HG (35-48); Arterial PO2 iSTAT 79 MM HG (80-95); Arterial Total CO2 iSTAT 27 MMO/L (23-27)
[2021-11-01 18:48] LABS: Albumin 2.2 G/DL (3.4-5.0); Calcium 9.1 MG/DL (8.5-10.1); Osmolality,Calculated 289.1 MOS/KG (273-304); Total Protein 6.2 G/DL (6.4-8.2)
[2021-11-01] MEDS ORDERED: LEVOFLOXACIN INJ 500 MG/100 ML PREMIX IV ONE (19:16)
[2021-11-01] MEDS ORDERED: ACETAMINOPHEN 325 MG TABLET PO PRN (20:24)
[2021-11-01] MEDS ORDERED: DEXTROSE 50% 25 GM/50 ML VIAL IV PRN (20:24)
[2021-11-01] MEDS ORDERED: GLUCAGON 1 MG VIAL IM PRN (20:24)
[2021-11-01] MEDS ORDERED: CETIRIZINE 10 MG TABLET PO PRN (20:30)
[2021-11-01] MEDS ORDERED: DEXTROSE 10% 250 ML BAG IV PRN (20:37)
[2021-11-01] MEDS: CEFEPIME 1,000 MG in SODIUM CHLORIDE 0.9% 100 ML IV SCH (21:05)
[2021-11-01] MEDS: ENOXAPARIN 40 MG/0.4 ML SYRINGE SUBCUT SCH (21:15)
[2021-11-01 21:35] LABS: Bilirubin,Urine Negative (Negative); Blood, Urine Negative (Negative); Glucose,Urine (UA) Negative (Negative); Ketones,Urine Trace mg/dL (Negative); Mucus,Urine Many /LPF (Occasional); Nitrite,Urine Negative (Negative); Protein,Urine 100 mg/dL (Negative); RBC,Urine 1 /HPF (0-4); Squamous Epithelial Cell,Urine Occasional /HPF (0-10); Urine Appearance Clear (Clear); Urine Color Yellow (Yellow); Urine Specific Gravity 1.015 (1.001-1.035); Urine Urobilinogen 0.2 eU/dL (<2.0)
[2021-11-01] MEDS: INSULIN REGULAR 100 UNIT/ML SUBCUT SCH (21:42)
[2021-11-01] MEDS: ASCORBIC ACID 500 MG TABLET PO SCH ×2 (23:39→23:52)
[2021-11-01] MEDS: DOCUSATE SODIUM 100 MG CAPSULE PO SCH (23:51)
[2021-11-01] MEDS: CHOLECALCIFEROL 5,000 UNIT TABLET PO SCH (23:52)
[2021-11-01] MEDS: MELATONIN 3 MG TABLET PO SCH (23:52)
[2021-11-01] MEDS: CARBIDOPA/LEVODOPA 25-100 MG TABLET PO SCH (23:52)
[2021-11-01] MEDS: FINASTERIDE 5 MG TABLET PO SCH (23:52)
[2021-11-01] MEDS: rOPINIRole 1 MG TABLET PO SCH (23:52)
[2021-11-02] MEDS: CEFEPIME 1,000 MG in SODIUM CHLORIDE 0.9% 100 ML IV SCH ×4 (03:46→20:49)
[2021-11-02 05:19] LABS: Basophils % 0.2 % (0.0-0.8); Eosinophils % 0.1 % (0.00-10.9); Hematocrit 35.8 VOL% (42.0-52.0); Hemoglobin 11.6 GM/DL (14.0-18.0); Immature Granulocytes % 1.1 %; Immature Granulocytes Absolute 0.11 #; Lymphocytes # 0.8 10*3/uL (1.4-4.0); Lymphocytes % 7.7 % (21.2-54.2); Mean Corpuscular HGB Conc 32.4 GM/DL (32-36); Mean Corpuscular Volume 93.5 FL (87-102); Mean Platelet Volume 10.7 FL (9.6-12.0); Monocytes # 0.8 10*3/uL (0.11-0.8); Monocytes % 7.8 % (1.7-12.7); Neutrophils % 83.1 % (38.7-73.9); Platelet Count 215 T/CUMM (130-400); Red Blood Count 3.83 MC/CUMM (3.8-5.5); Red Cell Distribution Width 13.9 % (9.3-17.3); White Blood Count 10.3 T/CUMM (4-12)
[2021-11-02 05:42] LABS: Albumin 2.1 G/DL (3.4-5.0); Calcium 8.5 MG/DL (8.5-10.1); Osmolality,Calculated 292.6 MOS/KG (273-304); Potassium 3.5 MMOL/L (3.5-5.1)
[2021-11-02 07:52] LABS: Free T4 (Free Thyroxine) 0.97 NG/DL (0.76-1.46)
[2021-11-02] MEDS: SODIUM CHLORIDE 0.9% 1,000 ML IV SCH ×2 (09:49→20:52)
[2021-11-02] MEDS: INSULIN REGULAR 100 UNIT/ML SUBCUT SCH ×4 (09:50→20:50)
[2021-11-02] MEDS: SODIUM CHLORIDE 0.45% 1,000 ML IV SCH ×2 (09:50→22:10)
[2021-11-02] MEDS: ASCORBIC ACID 500 MG TABLET PO SCH ×2 (10:01→20:51)
[2021-11-02] MEDS: rOPINIRole 1 MG TABLET PO SCH ×2 (10:01→20:51)
[2021-11-02] MEDS: ZINC SULFATE 220 MG CAPSULE PO SCH (10:02)
[2021-11-02] MEDS: CYANOCOBALAMIN 500 MCG TABLET PO SCH (10:02)
[2021-11-02] MEDS: DOCUSATE SODIUM 100 MG CAPSULE PO SCH ×2 (10:02→20:52)
[2021-11-02] MEDS: PANTOPRAZOLE 40 MG TABLET PO SCH (10:02)
[2021-11-02] MEDS: CLOPIDOGREL 75 MG TABLET PO SCH (10:02)
[2021-11-02] MEDS: TAMSULOSIN 0.4 MG CAPSULE PO SCH (10:03)
[2021-11-02] MEDS: CARBIDOPA/LEVODOPA 25-100 MG TABLET PO SCH ×3 (10:03→20:51)
[2021-11-02] MEDS: CHOLECALCIFEROL 5,000 UNIT TABLET PO SCH ×2 (10:03→20:52)
[2021-11-02] MEDS: POLYETHYLENE GLYCOL POWDER 17 GM PACK PO SCH (10:04)
[2021-11-02] MEDS: BENZONATATE 100 MG CAPSULE PO SCH ×2 (17:08→20:51)
[2021-11-02] MEDS: NYSTATIN 500,000 UNIT/5 ML UDCUP SWISH/SWAL SCH ×3 (17:08→20:52)
[2021-11-02] MEDS: ENOXAPARIN 40 MG/0.4 ML SYRINGE SUBCUT SCH (20:50)
[2021-11-02] MEDS: FINASTERIDE 5 MG TABLET PO SCH (20:51)
[2021-11-02] MEDS: MELATONIN 3 MG TABLET PO SCH (20:52)
[2021-11-03] MEDS: CEFEPIME 1,000 MG in SODIUM CHLORIDE 0.9% 100 ML IV SCH ×4 (04:54→21:06)
[2021-11-03] MEDS: NYSTATIN 500,000 UNIT/5 ML UDCUP SWISH/SWAL SCH ×5 (10:14→21:07)
[2021-11-03] MEDS: CHOLECALCIFEROL 5,000 UNIT TABLET PO SCH ×2 (10:15→21:08)
[2021-11-03] MEDS: ASCORBIC ACID 500 MG TABLET PO SCH ×2 (10:15→21:08)
[2021-11-03] MEDS: BENZONATATE 100 MG CAPSULE PO SCH ×3 (10:15→21:08)
[2021-11-03] MEDS: CARBIDOPA/LEVODOPA 25-100 MG TABLET PO SCH ×3 (10:16→21:07)
[2021-11-03] MEDS: TAMSULOSIN 0.4 MG CAPSULE PO SCH (10:16)
[2021-11-03] MEDS: CYANOCOBALAMIN 500 MCG TABLET PO SCH (10:16)
[2021-11-03] MEDS: DOCUSATE SODIUM 100 MG CAPSULE PO SCH ×2 (10:16→21:08)
[2021-11-03] MEDS: PANTOPRAZOLE 40 MG TABLET PO SCH (10:16)
[2021-11-03] MEDS: ZINC SULFATE 220 MG CAPSULE PO SCH (10:16)
[2021-11-03] MEDS: CLOPIDOGREL 75 MG TABLET PO SCH (10:16)
[2021-11-03] MEDS: rOPINIRole 1 MG TABLET PO SCH ×2 (10:16→21:07)
[2021-11-03] MEDS: POLYETHYLENE GLYCOL POWDER 17 GM PACK PO SCH (10:17)
[2021-11-03] MEDS: INSULIN REGULAR 100 UNIT/ML SUBCUT SCH ×4 (10:19→21:09)
[2021-11-03] MEDS: ONDANSETRON 4 MG/2 ML VIAL IV PRN (11:55)
[2021-11-03] MEDS ORDERED: ALBUTEROL INHALER 18 GM INH PRN (17:01)
[2021-11-03] MEDS: SODIUM CHLORIDE 0.45% 1,000 ML IV SCH (17:14)
[2021-11-03] MEDS: methylPREDNISolone SOD SUC 40 MG/1 ML VIAL IV SCH (17:15)
[2021-11-03] MEDS ORDERED: INSULIN GLARGINE 100 UNIT/ML SUBCUT SCH (21:00)
[2021-11-03] MEDS: MELATONIN 3 MG TABLET PO SCH (21:07)
[2021-11-03] MEDS: FINASTERIDE 5 MG TABLET PO SCH (21:07)
[2021-11-03] MEDS: guaiFENesin 200 MG/10 ML UDCUP PO PRN (21:08)
[2021-11-03] MEDS: ENOXAPARIN 40 MG/0.4 ML SYRINGE SUBCUT SCH (21:08)
[2021-11-04] MEDS: SODIUM CHLORIDE 0.45% 1,000 ML IV SCH ×2 (00:38→21:41)
[2021-11-04] MEDS: methylPREDNISolone SOD SUC 40 MG/1 ML VIAL IV SCH ×3 (00:39→17:29)
[2021-11-04] MEDS: CEFEPIME 1,000 MG in SODIUM CHLORIDE 0.9% 100 ML IV SCH ×4 (02:51→21:41)
[2021-11-04 05:12] LABS: Basophils % 0.3 % (0.0-0.8); Hematocrit 34.7 VOL% (42.0-52.0); Hemoglobin 11.2 GM/DL (14.0-18.0); Immature Granulocytes % 2.3 %; Immature Granulocytes Absolute 0.16 #; Lymphocytes # 0.5 10*3/uL (1.4-4.0); Lymphocytes % 7.3 % (21.2-54.2); Mean Corpuscular HGB Conc 32.3 GM/DL (32-36); Mean Corpuscular Volume 92.5 FL (87-102); Mean Platelet Volume 10.7 FL (9.6-12.0); Monocytes # 0.2 10*3/uL (0.11-0.8); Monocytes % 2.1 % (1.7-12.7); Platelet Count 277 T/CUMM (130-400); Red Blood Count 3.75 MC/CUMM (3.8-5.5); Red Cell Distribution Width 14.1 % (9.3-17.3); White Blood Count 7.1 T/CUMM (4-12)
[2021-11-04 05:36] LABS: Bilirubin,Total 0.7 MG/DL (0.20-1.00); Calcium 8.8 MG/DL (8.5-10.1); Ferritin 673.5 ng/mL (26-388); Osmolality,Calculated 294.1 MOS/KG (273-304); Potassium 3.9 MMOL/L (3.5-5.1); Total Protein 6.1 G/DL (6.4-8.2)
[2021-11-04] MEDS: INSULIN REGULAR 100 UNIT/ML SUBCUT SCH ×4 (08:59→21:43)
[2021-11-04] MEDS: POLYETHYLENE GLYCOL POWDER 17 GM PACK PO SCH ×2 (09:02→09:25)
[2021-11-04] MEDS: TAMSULOSIN 0.4 MG CAPSULE PO SCH (09:03)
[2021-11-04] MEDS: BENZONATATE 100 MG CAPSULE PO SCH ×4 (09:03→21:45)
[2021-11-04] MEDS: ZINC SULFATE 220 MG CAPSULE PO SCH (09:03)
[2021-11-04] MEDS: rOPINIRole 1 MG TABLET PO SCH ×2 (09:03→21:45)
[2021-11-04] MEDS: CLOPIDOGREL 75 MG TABLET PO SCH (09:03)
[2021-11-04] MEDS: ASCORBIC ACID 500 MG TABLET PO SCH ×2 (09:03→21:45)
[2021-11-04] MEDS: CYANOCOBALAMIN 500 MCG TABLET PO SCH (09:03)
[2021-11-04] MEDS: NYSTATIN 500,000 UNIT/5 ML UDCUP SWISH/SWAL SCH ×5 (09:04→21:43)
[2021-11-04] MEDS: DOCUSATE SODIUM 100 MG CAPSULE PO SCH ×3 (09:04→21:45)
[2021-11-04] MEDS: CARBIDOPA/LEVODOPA 25-100 MG TABLET PO SCH ×3 (09:04→21:46)
[2021-11-04] MEDS: PANTOPRAZOLE 40 MG TABLET PO SCH (09:04)
[2021-11-04] MEDS: CHOLECALCIFEROL 5,000 UNIT TABLET PO SCH ×2 (09:04→21:45)
[2021-11-04 13:55] LABS: Mycoplasma pneumoniae Ab Inter SEE COMMENTS; Mycoplasma pneumoniae Ab, IgG Positive (Negative); Mycoplasma pneumoniae Ab, IgM Negative (Negative)
[2021-11-04] MEDS ORDERED: INSULIN GLARGINE 100 UNIT/ML SUBCUT SCH (21:00)
[2021-11-04] MEDS: INSULIN GLARGINE 100 UNIT/ML SUBCUT SCH (21:42)
[2021-11-04] MEDS: ENOXAPARIN 40 MG/0.4 ML SYRINGE SUBCUT SCH (21:43)
[2021-11-04] MEDS: guaiFENesin 200 MG/10 ML UDCUP PO PRN (21:44)
[2021-11-04] MEDS: MELATONIN 3 MG TABLET PO SCH (21:45)
[2021-11-04] MEDS: FINASTERIDE 5 MG TABLET PO SCH (21:45)
[2021-11-05] MEDS: methylPREDNISolone SOD SUC 40 MG/1 ML VIAL IV SCH ×3 (00:28→16:07)
[2021-11-05] MEDS: CEFEPIME 1,000 MG in SODIUM CHLORIDE 0.9% 100 ML IV SCH ×4 (03:03→20:19)
[2021-11-05] MEDS: SODIUM CHLORIDE 0.45% 1,000 ML IV SCH ×3 (03:04→23:00)
[2021-11-05 05:54] LABS: Basophils % 0.2 % (0.0-0.8); Hematocrit 34.7 VOL% (42.0-52.0); Immature Granulocytes % 1.6 %; Immature Granulocytes Absolute 0.13 #; Lymphocytes # 0.7 10*3/uL (1.4-4.0); Lymphocytes % 8.9 % (21.2-54.2); Mean Corpuscular HGB Conc 31.7 GM/DL (32-36); Mean Corpuscular Volume 93.3 FL (87-102); Mean Platelet Volume 11.3 FL (9.6-12.0); Monocytes # 0.5 10*3/uL (0.11-0.8); Monocytes % 5.7 % (1.7-12.7); Neutrophils % 83.6 % (38.7-73.9); Platelet Count 267 T/CUMM (130-400); Red Blood Count 3.72 MC/CUMM (3.8-5.5); Red Cell Distribution Width 14.1 % (9.3-17.3); White Blood Count 8.1 T/CUMM (4-12)
[2021-11-05 06:18] LABS: Albumin 2.2 G/DL (3.4-5.0); Bilirubin,Total 0.7 MG/DL (0.20-1.00); Calcium 8.8 MG/DL (8.5-10.1); Osmolality,Calculated 286.5 MOS/KG (273-304); Total Protein 6.1 G/DL (6.4-8.2)
[2021-11-05] MEDS: POLYETHYLENE GLYCOL POWDER 17 GM PACK PO SCH (08:52)
[2021-11-05] MEDS: INSULIN REGULAR 100 UNIT/ML SUBCUT SCH ×4 (08:52→21:45)
[2021-11-05] MEDS: ASCORBIC ACID 500 MG TABLET PO SCH ×2 (08:55→20:16)
[2021-11-05] MEDS: TAMSULOSIN 0.4 MG CAPSULE PO SCH (08:56)
[2021-11-05] MEDS: CYANOCOBALAMIN 500 MCG TABLET PO SCH (08:56)
[2021-11-05] MEDS: DOCUSATE SODIUM 100 MG CAPSULE PO SCH ×2 (08:56→20:17)
[2021-11-05] MEDS: CHOLECALCIFEROL 5,000 UNIT TABLET PO SCH ×2 (08:56→20:16)
[2021-11-05] MEDS: NYSTATIN 500,000 UNIT/5 ML UDCUP SWISH/SWAL SCH ×4 (08:57→20:18)
[2021-11-05] MEDS: BENZONATATE 100 MG CAPSULE PO SCH ×3 (08:58→20:17)
[2021-11-05] MEDS: CARBIDOPA/LEVODOPA 25-100 MG TABLET PO SCH ×3 (08:58→20:17)
[2021-11-05] MEDS: rOPINIRole 1 MG TABLET PO SCH ×2 (08:58→20:16)
[2021-11-05] MEDS: CLOPIDOGREL 75 MG TABLET PO SCH (08:59)
[2021-11-05] MEDS: PANTOPRAZOLE 40 MG TABLET PO SCH (08:59)
[2021-11-05] MEDS: ZINC SULFATE 220 MG CAPSULE PO SCH (08:59)
[2021-11-05] MEDS: FINASTERIDE 5 MG TABLET PO SCH (20:16)
[2021-11-05] MEDS: MELATONIN 3 MG TABLET PO SCH (20:16)
[2021-11-05] MEDS: ENOXAPARIN 40 MG/0.4 ML SYRINGE SUBCUT SCH (20:18)
[2021-11-05] MEDS: INSULIN GLARGINE 100 UNIT/ML SUBCUT SCH (21:46)
[2021-11-06] MEDS: methylPREDNISolone SOD SUC 40 MG/1 ML VIAL IV SCH ×3 (00:30→20:53)
[2021-11-06] MEDS: guaiFENesin 200 MG/10 ML UDCUP PO PRN (00:35)
[2021-11-06] MEDS: CEFEPIME 1,000 MG in SODIUM CHLORIDE 0.9% 100 ML IV SCH ×2 (03:00→07:59)
[2021-11-06 04:48] LABS: Basophils % 0.2 % (0.0-0.8); Hematocrit 31.9 VOL% (42.0-52.0); Hemoglobin 10.5 GM/DL (14.0-18.0); Immature Granulocytes % 1.6 %; Immature Granulocytes Absolute 0.15 #; Lymphocytes # 0.6 10*3/uL (1.4-4.0); Lymphocytes % 5.8 % (21.2-54.2); Mean Corpuscular HGB Conc 32.9 GM/DL (32-36); Mean Corpuscular Volume 92.5 FL (87-102); Mean Platelet Volume 10.4 FL (9.6-12.0); Monocytes # 0.6 10*3/uL (0.11-0.8); Monocytes % 6.1 % (1.7-12.7); Neutrophils % 86.3 % (38.7-73.9); Platelet Count 324 T/CUMM (130-400); Red Blood Count 3.45 MC/CUMM (3.8-5.5); Red Cell Distribution Width 13.9 % (9.3-17.3); White Blood Count 9.5 T/CUMM (4-12)
[2021-11-06 05:15] LABS: Albumin 2.2 G/DL (3.4-5.0); Bilirubin,Total 0.6 MG/DL (0.20-1.00); Calcium 8.3 MG/DL (8.5-10.1); Ferritin 433.9 ng/mL (26-388); Osmolality,Calculated 286.1 MOS/KG (273-304); Potassium 3.3 MMOL/L (3.5-5.1); Total Protein 5.7 G/DL (6.4-8.2)
[2021-11-06] MEDS: SODIUM CHLORIDE 0.45% 1,000 ML IV SCH ×2 (07:12→17:14)
[2021-11-06] MEDS: INSULIN REGULAR 100 UNIT/ML SUBCUT SCH ×4 (07:36→21:00)
[2021-11-06] MEDS: ZINC SULFATE 220 MG CAPSULE PO SCH (08:02)
[2021-11-06] MEDS: TAMSULOSIN 0.4 MG CAPSULE PO SCH (08:02)
[2021-11-06] MEDS: CLOPIDOGREL 75 MG TABLET PO SCH (08:02)
[2021-11-06] MEDS: PANTOPRAZOLE 40 MG TABLET PO SCH (08:02)
[2021-11-06] MEDS: BENZONATATE 100 MG CAPSULE PO SCH ×3 (08:02→20:42)
[2021-11-06] MEDS: ASCORBIC ACID 500 MG TABLET PO SCH ×2 (08:03→20:42)
[2021-11-06] MEDS: NYSTATIN 500,000 UNIT/5 ML UDCUP SWISH/SWAL SCH ×4 (08:03→20:53)
[2021-11-06] MEDS: POLYETHYLENE GLYCOL POWDER 17 GM PACK PO SCH (08:03)
[2021-11-06] MEDS: CYANOCOBALAMIN 500 MCG TABLET PO SCH (08:03)
[2021-11-06] MEDS: CARBIDOPA/LEVODOPA 25-100 MG TABLET PO SCH ×3 (08:04→20:42)
[2021-11-06] MEDS: rOPINIRole 1 MG TABLET PO SCH ×2 (08:04→20:42)
[2021-11-06] MEDS: CHOLECALCIFEROL 5,000 UNIT TABLET PO SCH ×2 (08:04→20:43)
[2021-11-06] MEDS: DOCUSATE SODIUM 100 MG CAPSULE PO SCH ×2 (08:05→20:42)
[2021-11-06] MEDS ORDERED: ALBUTEROL 2.5 MG/3 ML NEB RESP TX PRN (09:00)
[2021-11-06] MEDS: POTASSIUM CHLORIDE RIDER 10 MEQ/100 ML PREMIX IV SCH ×3 (10:46→13:13)
[2021-11-06] MEDS: INSULIN GLARGINE 100 UNIT/ML SUBCUT SCH ×2 (11:49→20:54)
[2021-11-06] MEDS: FINASTERIDE 5 MG TABLET PO SCH (20:42)
[2021-11-06] MEDS: CEFUROXIME 500 MG TABLET PO SCH (20:42)
[2021-11-06] MEDS: MELATONIN 3 MG TABLET PO SCH (20:42)
[2021-11-06] MEDS: ENOXAPARIN 40 MG/0.4 ML SYRINGE SUBCUT SCH (20:57)
[2021-11-06] MEDS ORDERED: INSULIN GLARGINE 100 UNIT/ML SUBCUT SCH (21:00)
[2021-11-07] MEDS: SODIUM CHLORIDE 0.45% 1,000 ML IV SCH ×2 (01:41→16:11)
[2021-11-07 05:26] LABS: Basophils % 0.2 % (0.0-0.8); Hematocrit 33.8 VOL% (42.0-52.0); Hemoglobin 11.3 GM/DL (14.0-18.0); Immature Granulocytes % 3.5 %; Immature Granulocytes Absolute 0.46 #; Lymphocytes # 0.8 10*3/uL (1.4-4.0); Lymphocytes % 5.9 % (21.2-54.2); Mean Corpuscular HGB Conc 33.4 GM/DL (32-36); Mean Corpuscular Volume 91.1 FL (87-102); Mean Platelet Volume 10.3 FL (9.6-12.0); Monocytes # 0.8 10*3/uL (0.11-0.8); Monocytes % 6.2 % (1.7-12.7); Neutrophils % 84.2 % (38.7-73.9); Platelet Count 415 T/CUMM (130-400); Red Blood Count 3.71 MC/CUMM (3.8-5.5); Red Cell Distribution Width 13.9 % (9.3-17.3); White Blood Count 13.2 T/CUMM (4-12)
[2021-11-07 05:58] LABS: Albumin 2.1 G/DL (3.4-5.0); Calcium 7.6 MG/DL (8.5-10.1); Ferritin 392.6 ng/mL (26-388); Osmolality,Calculated 276.8 MOS/KG (273-304); Potassium 3.3 MMOL/L (3.5-5.1); Total Protein 5.6 G/DL (6.4-8.2)
[2021-11-07] MEDS: INSULIN REGULAR 100 UNIT/ML SUBCUT SCH ×2 (07:52→12:01)
[2021-11-07] MEDS ORDERED: AZITHROMYCIN 250 MG TABLET PO SCH (09:00)
[2021-11-07] MEDS: POLYETHYLENE GLYCOL POWDER 17 GM PACK PO SCH (09:36)
[2021-11-07] MEDS: CLOPIDOGREL 75 MG TABLET PO SCH (09:37)
[2021-11-07] MEDS: CEFUROXIME 500 MG TABLET PO SCH (09:37)
[2021-11-07] MEDS: TAMSULOSIN 0.4 MG CAPSULE PO SCH (09:37)
[2021-11-07] MEDS: CYANOCOBALAMIN 500 MCG TABLET PO SCH (09:37)
[2021-11-07] MEDS: DOCUSATE SODIUM 100 MG CAPSULE PO SCH (09:37)
[2021-11-07] MEDS: rOPINIRole 1 MG TABLET PO SCH (09:38)
[2021-11-07] MEDS: ZINC SULFATE 220 MG CAPSULE PO SCH (09:38)
[2021-11-07] MEDS: ASCORBIC ACID 500 MG TABLET PO SCH (09:39)
[2021-11-07] MEDS: CHOLECALCIFEROL 5,000 UNIT TABLET PO SCH (09:39)
[2021-11-07] MEDS: PANTOPRAZOLE 40 MG TABLET PO SCH (09:39)
[2021-11-07] MEDS: CARBIDOPA/LEVODOPA 25-100 MG TABLET PO SCH ×2 (09:39→15:56)
[2021-11-07] MEDS: BENZONATATE 100 MG CAPSULE PO SCH ×2 (09:41→16:11)
[2021-11-07] MEDS: INSULIN GLARGINE 100 UNIT/ML SUBCUT SCH (09:44)
[2021-11-07] MEDS: NYSTATIN 500,000 UNIT/5 ML UDCUP SWISH/SWAL SCH ×3 (09:44→13:06)
[2021-11-07] MEDS: ONDANSETRON 4 MG/2 ML VIAL IV PRN (09:56)
[2021-11-07] MEDS: methylPREDNISolone SOD SUC 40 MG/1 ML VIAL IV SCH (10:06)
[2021-11-07 12:13] VITALS: BP 138/56
[2021-11-07] MEDS ORDERED: ALBUTEROL/IPRATROPIUM 3 ML NEB RESP TX SCH (15:00)
[2021-11-07] MEDS ORDERED: POTASSIUM CHLORIDE 20 MEQ TABLET PO ONE (16:00)
== END 2021-11-07 16:00 | DRG 177 ==
LOC: N.ED 17:12 → N.EDINP 21:08 → SUATTDRO 21:08 → N.5E 22:20
PROVIDERS: ADMIT Internal Medicine; ATTEND Internal Medicine